=== PATIENT | female | born 1985 | race Caucasian/White ===

== ENCOUNTER 2018-11-25 07:56 | Inpatient (IN) | payer OTHER ==
[2018-11-19 14:35] VITALS: BMI 26.6
--- NOTE | 2018-11-23 15:09 | HP ---
Admitting History and Physical - Primary Care Physician PCP: Humberto Whittington - Admission Chief Complaint: BRCA positve History of Present Illness: 33 year old premenapausal female BRCA 2 positve mutation with H/O her maternal grandmother having breast cancer at age 40 and her mother passed from breast cancer at age 44 and tested negative 2002. Mammogram and US were negative and breast MRI was negative 07/30/2018 History Source: Patient Limitations to Obtaining History: No Limitations - Past Medical History ...LMP: 11/01/18 ...: No - Past Surgical History Past Surgical History: Yes: Tonsillectomy - Smoking History Smoking history: Never smoked Have you smoked in the past 12 months: No - Alcohol/Substance Use Hx Alcohol Use: Yes (SOCIALLY) Home Medications - Allergies Allergies/Adverse Reactions: Allergies Allergy/AdvReac Type Severity Reaction Status Date / Time latex Allergy Severe Hives,ITCHI Verified 11/19/18 14:28 NG No Known Drug Allergies Allergy Verified 11/19/18 14:28 - Home Medications Home Medications: Ambulatory Orders NK [No Known Home Medication] 11/19/18 Family Disease History - Family Disease History Family Disease History: CA: Grandparent (mat GM breast ca 40), Mother (breast ca 44 tested BRCA neg 2002 ) Physical Examination Constitutional: Yes: Well Nourished Breast(s): Yes: Other (B ptotic cup breasts no palapble densities or adenopathy bilaterally) Problem List - Problems (1) BRCA gene mutation test positive Code(s): Z15.01 - GENETIC SUSCEPTIBILITY TO MALIGNANT NEOPLASM OF BREAST; Z15.09 - GENETIC SUSCEPTIBILITY TO OTHER MALIGNANT NEOPLASM Assessment/Plan Bilateral total mastectomies with reconstruction
[2018-11-25] MEDS ORDERED: BUPIVACAINE HCL/PF 2.5 MG/ML - 30 ML VIAL IJ ONE (08:27)
[2018-11-25] MEDS ORDERED: ceFAZolin SODIUM 1 GM VIAL ONE (08:27)
[2018-11-25] MEDS ORDERED: GENTAMICIN SO4 80 MG/2 ML VIAL ONE (08:27)
[2018-11-25] MEDS ORDERED: SODIUM CHLORIDE 0.9% P/F 10 ML VIAL IJ ONE (08:27)
[2018-11-25] MEDS ORDERED: BUPIVACAINE LIPOSOME/PF (EXPAREL) 266 MG/20 ML VIAL ONE (08:29)
[2018-11-25] MEDS ORDERED: MIDAZOLAM HCL 2 MG/2 ML SINGLE DOSE VIAL ONE (08:52)
[2018-11-25] MEDS ORDERED: fentaNYL CITRATE 250 MCG/5 ML VIAL ONE (08:56)
[2018-11-25] MEDS ORDERED: PROPOFOL 20 ML ONE ×8 (08:58→08:59)
[2018-11-25] MEDS ORDERED: SUCCINYLCHOLINE CHLORIDE 200 MG/10 ML VIAL ONE (09:00)
[2018-11-25] MEDS ORDERED: ROCURONIUM BROMIDE 50 MG/5 ML VIAL ONE ×2 (09:00→10:29)
[2018-11-25] MEDS ORDERED: SCOPOLAMINE HYDROBROMIDE 1 PATCH PATCH.TD72 ONE (09:06)
[2018-11-25] MEDS ORDERED: ONDANSETRON 4 MG/2 ML VIAL IVPUSH PRN ×2 (09:08→13:04)
[2018-11-25] MEDS ORDERED: ZOLPIDEM TARTRATE 5 MG TABLET PO PRN (09:08)
[2018-11-25] MEDS ORDERED: NEOSTIGMINE METHYLSULFATE 0.5 MG/ML - 10 ML MDV ONE (12:27)
[2018-11-25] MEDS ORDERED: GLYCOPYRROLATE 0.2 MG/1 ML VIAL ONE (12:28)
[2018-11-25] MEDS ORDERED: PROMETHAZINE HCL 25 MG/1 ML VIAL IVPUSH PRN (13:04)
[2018-11-25] MEDS ORDERED: oxyCODONE HCL 5 MG TABLET PO PRN ×2 (13:04)
[2018-11-25] MEDS: oxyCODONE HCL 5 MG TABLET PO PRN ×2 (16:22→21:22)
[2018-11-25] MEDS: CEFAZOLIN 1 GM/D5W 1 GM/50 ML BAG IVPB SCH ×2 (16:25→20:29)
--- NOTE | 2018-11-25 17:19 | OP ---
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
[2018-11-25] MEDS: DEXTROSE 5%-0.45% SALINE 1,000 ML IV SCH (18:51)
[2018-11-25] MEDS ORDERED: ALPRAZolam 0.25 MG TABLET PO SCH (22:00)
[2018-11-25] MEDS ORDERED: diazePAM 5 MG TABLET PO SCH (22:00)
[2018-11-26] MEDS: CEFAZOLIN 1 GM/D5W 1 GM/50 ML BAG IVPB SCH ×4 (02:34→20:08)
[2018-11-26] MEDS: oxyCODONE HCL 5 MG TABLET PO PRN ×6 (03:45→23:57)
--- NOTE | 2018-11-26 06:23 | OP ---
DATE OF OPERATION: 11/25/2018 PREOPERATIVE DIAGNOSIS: Genetic susceptibility to breast cancer, BRCA2 positive. POSTOPERATIVE DIAGNOSIS: Genetic susceptibility to breast cancer, BRCA2 positive, status post bilateral mastectomy. PROCEDURE: Bilateral nipple-sparing mastectomy through an inframammary approach with bilateral prepectoral direct implant reconstruction with AlloDerm. ANESTHESIA: General endotracheal anesthesia. PRIMARY SURGEON: Cyrus Whittington MD CHAIN MAKER: ROBERT Rivero PRIMARY SURGEON FOR THE BILATERAL PREPECTORAL DIRECT IMPLANT RECONSTRUCTION: Cyrus Arreola MD COMPLICATIONS: There were no complications. INDICATIONS: Briefly the patient is a 33-year-old premenopausal female, [place] but no [place] ancestry. Her mother had breast cancer at age 44 but tested BRCA negative. The patient herself tested BRCA2 positive in March 2018 and has been getting close surveillance. Recent mammography, ultrasound and MRIs have all been negative. She was seen in consultation regarding risk-reduction prophylactic mastectomy. She understood her options of close surveillance versus tamoxifen versus prophylactic risk-reduction surgery. She decided to go forward with surgery and understood all risks and complications of the procedure including the risk of skin flap necrosis, nipple loss, hematoma, and infection. She understood our nipple-sparing technique and that we do retroareolar biopsies at the time of surgery. If these show cancer we would remove the nipples. She understood the lack of any evidence showing for doing prophylactic sentinel lymph node biopsy. She was seen by Dr. Arreola and decided on the prepectoral direct implant reconstruction technique. She was brought in on November 25, 2018, and in the holding area a site verification was made and informed consent was obtained. She was marked preoperatively by Dr. Arreola. She was brought into the operating room and laid on the OR table in a supine position. Venodynes were placed on the lower extremities prior to induction. She received 2 g of Ancef prior to incision. She underwent general endotracheal anesthesia. Both breasts were sterilely prepped and draped in the usual fashion. Timeout was performed. The left mastectomy was first performed through about a 9-cm inframammary incision. The skin edges were everted and the breast was retracted inferiorly using Chucky clamps. The skin flap was raised using the PEAK radiofrequency device superiorly to the level of the clavicle, medially to the level of the sternum, laterally to the level of the latissimus, and inferiorly below the level of the inframammary fold. The breast was taken out off the pectoralis major muscle using electrocautery from inferomedial to superolateral and completely removed intact. It was oriented with a long lateral, short superior suture and weighed to allow for appropriate cosmetic result. Hemostasis was achieved. The skin flaps were inspected and trimmed for a good cosmetic result. A retroareolar biopsy taken underneath the left nipple-areolar complex sent for frozen section came back negative so the left nipple was spared. At this point the right mastectomy was performed again through an inframammary incision about 9 cm in length. The skin edges were everted and the breast was retracted inferiorly using [place] clamps. The skin flap was raised using the PEAK radiofrequency device superiorly to the level of the clavicle, medially to the level of the sternum, laterally to the level of the latissimus, and inferiorly below the level of the inframammary fold. The breast was taken out off the pectoralis major muscle from inferomedial to superolateral and completely removed intact. It was oriented with a long lateral, short superior suture and weighed to allow for appropriate cosmetic result. The skin flaps were trimmed and inspected to remove all visual gross breast tissue and for a good cosmetic result. A right retroareolar biopsy was taken and sent for frozen section and came back negative so the right nipple was spared. Hemostasis was achieved and the wound was copiously irrigated with warm sterile saline. At this point Dr. Arreola became the primary surgeon and performed bilateral direct implant reconstructions in the prepectoral location using AlloDerm. Two Baljeet drains will be placed around each implant and brought out through separate stab incisions on the lateral skin flaps and secured in place using 3-0 nylon suture. They will be placed on J-P bulb suction. All wounds will be closed by Plastic Surgery with interrupted 3-0 deep dermal PDS suture and a running 4-0 subcuticular Biosyn suture. Mastisol and Steri-Strips will be applied over the skin and she will be placed in a surgical bra postoperatively. The patient did have an Exparel chest wall block placed on each chest wall prior to closure for postoperative pain control. The patient will be extubated and brought to the postanesthesia care unit. She will be recovered and admitted postoperatively for pain and wound management. All sponge and needle counts were correct at this point in the case and estimated blood loss was about 150 mL. She was hemodynamically stable at this point in the case. We did use the Spy skin perfusion device both before and after implant reconstruction which did show good perfusion of both skin flaps and nipple-areolar complexes. CYRUS WHITTINGTON M.D. [id number]
[2018-11-26] MEDS: ACETAMINOPHEN 325 MG TABLET (FP) PO PRN ×4 (06:31→23:57)
[2018-11-26 07:46] LABS: HEMATOCRIT 28.7 % (32.4-45.2); HEMOGLOBIN 9.4 GM/dl (10.7-15.3); MCH 29.4 pg (25.7-33.7); MEAN CELL VOLUME 89.3 fl (80-96); MEAN PLT VOLUME 9.3 fl (7.5-11.1); PLATELET COUNT 224 K/MM3 (134-434); RBC 3.21 M/mm3 (3.60-5.2); RDW 11.7 % (11.6-15.6); WHITE BLOOD COUNT 10.6 K/mm3 (4.0-10.8)
--- NOTE | 2018-11-26 08:23 | PN ---
Progress Note (short form) - Note Progress Note: ANESTHESIA POSTOP 33 YO FEMALE, POD#1, S/P BL MASTECTOMY, IMMEDIATE RECONSTRUCTION, GETA Patient resting in bed. No complaints. Pain adequately controlled. No n/v. Tolerating PO. VSS, Afebrile Encouraged IS and ambulation as tolerated.
--- NOTE | 2018-11-26 08:48 | PN ---
Progress Note, Physician Chief Complaint: BRCA positive S/P bilateral total mastectomies with implant and alloderm reconstruction POD #! History of Present Illness: patient is eating ,pain managed but C/O some tightness she has been on xanax for aprox a week to two bid to TID - Current Medication List Current Medications: Active Medications Acetaminophen (Tylenol -) 650 mg PO Q4H PRN PRN Reason: FEVER Last Admin: 11/26/18 06:31 Dose: 650 mg Alprazolam (Xanax -) 0.5 mg PO BID ENMANUEL Last Admin: 11/25/18 21:26 Dose: 0.5 mg Cefazolin Sodium (Ancef 1 Gm Premixed Ivpb -) 1 gm in 50 mls @ 100 mls/hr IVPB Q6H-IV ENMANUEL Stop: 12/02/18 14:59 Last Admin: 11/26/18 08:39 Dose: 100 mls/hr Dextrose/Sodium Chloride (D5-1/2ns -) 1,000 mls @ 100 mls/hr IV ASDIR ENMANUEL Last Admin: 11/25/18 18:51 Dose: Not Given Ondansetron HCl (Zofran Injection) 4 mg IVPUSH Q6H PRN PRN Reason: NAUSEA AND/OR VOMITING Oxycodone HCl (Roxicodone -) 5 mg PO Q4H PRN PRN Reason: PAIN LEVEL 1-5 Last Admin: 11/26/18 08:40 Dose: 5 mg Oxycodone HCl (Roxicodone -) 10 mg PO Q4H PRN PRN Reason: PAIN LEVEL 6-10 Last Admin: 11/26/18 03:45 Dose: 10 mg - Objective Vital Signs: Vital Signs Temperature 98.5 F 11/26/18 04:00 Pulse Rate 79 11/26/18 04:00 Respiratory Rate 18 11/26/18 04:00 Blood Pressure 103/53 L 11/26/18 04:00 O2 Sat by Pulse Oximetry (%) 97 11/26/18 04:00 Constitutional: Yes: No Distress Breast(s): Yes: Other (Bilateral flaps viable minimal echymosis incision intact with steristrips RODOLFO drains functioning well) Labs: CBC, BMP 11/26/18 07:14 Problem List - Problems (1) BRCA gene mutation test positive Code(s): Z15.01 - GENETIC SUSCEPTIBILITY TO MALIGNANT NEOPLASM OF BREAST; Z15.09 - GENETIC SUSCEPTIBILITY TO OTHER MALIGNANT NEOPLASM Assessment/Plan Continue IV antibiotics SCD in bed spirometry oxycodone prn xanax alternating with valium for anxiety /tightness plan for discharge tmr
[2018-11-26] MEDS: ALPRAZolam 0.25 MG TABLET PO PRN ×2 (09:00→22:04)
[2018-11-26] MEDS: diazePAM 5 MG TABLET PO PRN ×2 (10:10→22:04)
--- NOTE | 2018-11-26 17:36 | PN ---
Progress Note (short form) - Note Progress Note: POD#1 Pt seen earlier this am. Pt states that her pain is around a level 5, it is more dull in nature. Voiding without difficulty. Vital Signs Period Temp Pulse Resp BP Sys/Porras Pulse Ox Last 24 Hr 98.4 F-98.5 F 75-79 16-18 94-103/43-53 97-99 RODOLFO: RIGHT:140 ml-bloody but thin appearing LEFT: 130ml bloody GEN: A&0x3, NAD Breast: b/l nipple with good capillary refill and tissue perfusion. No evidence of ischemia. Warm to touch b/l. RODOLFO's stripped and functioning well. Mild ecchymosis b/l. steri strips c/d/i. 4x4 gauze/abd pads and surgical bra reapplied. CBC, BMP 11/26/ 07:14 A/p: 33 yo female s/p b/l prophylactic mastectomy with reconstruction/alloderm and implants Pt without any evidence of tissue ischemia. Nipples warm and skin well perfused. Care as per the primary surgical team F/u with Dr. Arreola as an outpatient in the office D/w Dr. Arreola
[2018-11-27] MEDS: CEFAZOLIN 1 GM/D5W 1 GM/50 ML BAG IVPB SCH ×2 (02:59→09:43)
[2018-11-27] MEDS: oxyCODONE HCL 5 MG TABLET PO PRN ×2 (03:06→07:50)
[2018-11-27] MEDS: ACETAMINOPHEN 325 MG TABLET (FP) PO PRN ×2 (03:07→10:43)
[2018-11-27 03:16] VITALS: TEMP 98.4
[2018-11-27 07:31] VITALS: BP 100/55; PULSE 80
[2018-11-27] MEDS: DEXTROSE 5%-0.45% SALINE 1,000 ML IV SCH (08:18)
[2018-11-27] MEDS: diazePAM 5 MG TABLET PO PRN (10:44)
--- NOTE | 2018-11-29 09:56 | OP ---
DATE OF OPERATION: 11/25/2018 SURGEON: Cyurs Arreola MD ALUMNAE SECRETARY SURGEON: Maggie White PA-C This is a combined dictation with Dr. Cyrus Whittington. PREOPERATIVE DIAGNOSES: 1. Bilateral acquired chest wall deformity status post bilateral mastectomy. 2. Personal history of genetic carcinoma. 3. Absent bilateral breasts. POSTOPERATIVE DIAGNOSES: 1. Bilateral acquired chest wall deformity status post bilateral mastectomy. 2. Personal history of genetic carcinoma. 3. Absent bilateral breasts. OPERATIVE PROCEDURE: 1. Right breast immediate reconstruction utilizing immediate insertion of silicone breast implant, AlloDerm reconstruction and mesh placement. 2. Left breast immediate reconstruction utilizing immediate insertion of silicone breast implant, AlloDerm reconstruction and mesh placement. 3. Intravenous injection of indocyanine green dye and intraoperative diagnostic evaluation of noncoronary intraoperative fluorescein vascular angiography x2 as well as interpretation of angiogram intraoperatively. OPERATIVE INDICATION: Patient is a 32-year-old white female who was brought to the operating room by Dr. Cyrus Whittington for bilateral mastectomy for significant genetic history of breast carcinoma. The patient elected to undergo bilateral mastectomy with the above reconstructive procedure in a prepectoral position. The risks and benefits of surgical versus nonsurgical alternatives as well as material complications were described to the patient on multiple occasions preoperatively. She was marked in the standing position preoperatively in the holding area and all questions were asked and answered. OPERATIVE PROCEDURE IN DETAIL: The patient was taken to the operating room by Dr. Whittington where she was placed supine on the operating room table. Both arms were extended and padded. Venodyne boots were placed and all areas were protected and padded. Dr. Whittington will dictate his portion of the operation under separate cover. At this point Dr. Whittington performed bilateral mastectomy with an inframammary incision on both right and left breasts which will be dictated separately. Upon completion of the mastectomies the wounds were copiously irrigated and hemostasis was meticulously obtained throughout the pocket and both chest levy. On the back table as the mastectomies were being performed I created reconstructive procedures by utilizing a full coverage reconstructive implant. A Sientra smooth round high-profile style 107, 505 mL implant was used for the reconstruction. Covidien ProGrip mesh was placed in a circular fashion cutting out the mesh slightly larger than the back side of the implant. The gripping portion of the mesh was placed away from the implant in order to adhere to the pectoralis muscle. At this point a sheet of AlloDerm was selected. In this case a 16 x 20 perforated thick AlloDerm was used to cover the anterior surface of the entire implant and then was sutured down to the underlying mesh over the implant and suturing it on the back side. Multiple 2-0 Vicryl sutures were placed around the circumference of the implant creating an entire enclosure for the new implant device. Triple-antibiotic solution and Betadine were used to cover this device and the AlloDerm was soaked in triple-antibiotic solution x3. Both devices were created on the back table and ready for reconstruction. The exact same procedure was carried out symmetrically on the opposite left side in order to create the same device with the same size Sientra 107, 505 mL high-profile implant. Once the mastectomies were completed, the left breast was attended to first. The device was transferred to the left chest wall and the rim which extended beyond the implant itself was then attached to the chest wall using 0 V-Loc suture in a running fashion from the medial to the lateral side to tack the mesh down to the pectoralis muscle at the inframammary fold and laterally and medially in order to prevent motion of the device. Good shape and contour were seen in the shape of the breast at this point. Skin flaps showed viability. The Spy intraoperative angiogram was performed at this point by injecting 4 mL of indocyanine green dye into the intravascular system and then an intraoperative angiogram was used to show adequate blood flow to the skin and nipple-areolar complex on both chest levy. This was repeated before placement of the implant and then after the implant was placed. Both showed good blood flow. The Spy imaging system was brought into the field. The skin flowed to the right and left breasts and the nipple-areolar complex, and the entire skin flaps were evaluated and seen to be viable with good blood flow. The patient had the 2nd implant placed into the right chest wall in the exact same fashion, suturing a 0 V-Loc suture in running fashion from medial to lateral, attaching the posterior aspect of the mesh down to the chest wall. Once the implants were verified in good position and shape and contour were seen the skin flaps were draped over the implant and down into their new anatomic position. The skin edges were trimmed. A 15 Baljeet drain was threaded through a separate stab wound around the entire circumference of the implant itself and sutured into position. Again, copious irrigation and hemostasis were obtained and then attention was turned to the closure. Using 3-0 PDS suture on the deep dermis and tissue the deep layer was repaired with interrupted sutures and then a 4-0 Biosyn suture was used in a subcuticular fashion to repair the skin. Biopatch and Dermabond with Steri-Strips were placed over the drain and suture line. A compression dressing with fluff dressings, ABD gauze and a Surgi-Bra were placed. She was then awakened, extubated and transferred to the recovery room in satisfactory condition and showed excellent contour and excellent result at this point. CYRUS ARREOLA M.D. [id number]
--- NOTE | 2018-11-29 15:14 | PATH ---
Surgical Pathology Report Patient Name: MARY AYALA Med. Rec. #: [id number] /Age/Gender: 1985 (Age: 33) / F Account: [id number] Location: [facility] Taken: 11/25/2018 Received: 11/25/2018 Reported: 11/29/2018 Physicians: Humberto Whittington M.D. Specimen(s) Received A: LEFT BREAST RETROAREOLAR BIOPSY#1 (FS) B: RIGHT BREAST RETRO AREOLAR BIOPSY #2 (FS) C: LEFT BREAST MASTECTOMY D: RIGHT BREAST MASTECTOMY Clinical History BRCA+ prophylactic Intraoperative Consult Diagnosis A. Left breast retroareolar biopsy, frozen section: Negative for malignancy. B. Right breast retroareolar biopsy, frozen section: Negative for malignancy. Ana Greene M.D., 11/25/2018 Final Diagnosis A. BREAST, LEFT, RETROAREOLA, BIOPSY (FS): BENIGN BREAST TISSUE; NEGATIVE FOR MALIGNANCY. B. BREAST, RIGHT, RETROAREOLA, BIOPSY (FS): BENIGN BREAST TISSUE; NEGATIVE FOR MALIGNANCY. C. BREAST, LEFT, NIPPLE-SPARING MASTECTOMY: BENIGN BREAST TISSUE SHOWING FIBROCYSTIC CHANGES. D. BREAST, RIGHT, NIPPLE-SPARING MASTECTOMY: BENIGN BREAST TISSUE SHOWING FIBROCYSTIC CHANGES. Electronically Signed Alma Greene M.D. Gross Description A. Received fresh labeled "left breast retroareolar biopsy," is a 0.7 x 0.5 x 0.2 cm portion of pink and red barlow tissue. A frozen section is performed on the tissue. The frozen section residue is entirely submitted in one cassette. B. Received fresh labeled "right breast retroareolar biopsy," is a 1.4 x 0.8 x 0.3 cm portion of pink and red barlow tissue. A frozen section is performed on the tissue. The frozen section residue is entirely submitted in one cassette. C. Received in formalin, labeled "left breast," is a 379 gram, 13.5 x 15.0 x 3.5 cm. left mastectomy specimen with a short suture marking the superior aspect and a long suture marking the lateral aspect of the specimen, per the surgeon. There is no skin or nipple present. The deep margin is inked black and the anterior soft tissue margin is inked blue. The specimen is serially sectioned from medial to lateral. Sectioning reveals abundant dense white fibrous tissue. Shading Painter sections are submitted in 14 cassettes as follows: 1-3-upper outer quadrant; 4-6-lower outer quadrant; 7-9-upper inner quadrant; 10-12-lower inner quadrant; 13-anterior soft tissue margin; 14-deep margin. D. Received in formalin, labeled "right breast," is a 302 gram, 15.0 x 15.0 x 3.0 cm. right mastectomy specimen with a short suture marking the superior aspect and a long suture marking the lateral aspect of the specimen, per the surgeon. There is no skin or nipple present. The deep margin is inked black and the anterior soft tissue margin is inked blue. The specimen is serially sectioned from lateral to medial. Sectioning reveals abundant dense white fibrous tissue. Shading Painter sections are submitted in 13 cassettes as follows: 1-5- lower inner quadrant (with anterior margin); 6-8-upper inner quadrant; 9-10-upper outer quadrant; 11-12-lower outer quadrant; 13-deep margin. Total formalin fixation time: Approximately 30 hours. 11/26/2018 [facility]11/26/2018
== END 2018-11-27 11:02 | disposition home or self-care (01) | DRG 941 ==
LOC: FM/S 07:56
PROVIDERS: ADMIT Surgery Surgical Oncology; ATTEND Surgery Surgical Oncology
PROC: 0HTV0ZZ Resection of Bilateral Breast, Open Approach (ICD-10-PCS; principal; 2018-11-25 09:40)
PROC: 0HRVXKZ (ICD-10-PCS; 2018-11-25 09:40)
DX: Z15.01 Genetic susceptibility to malignant neoplasm of breast (principal); Z80.3 Family history of malignant neoplasm of breast
CPT/HCPCS: 36415; 84703; 85027; 88307-TC; 88331-TC; 94760

== ENCOUNTER 2020-01-26 09:30 | Day surgery (SDC) | payer OTHER ==
[2020-01-23 14:29] VITALS: BMI 33.0
[2020-01-26] MEDS ORDERED: GENTAMICIN SO4 80 MG/2 ML VIAL ONE (10:07)
[2020-01-26] MEDS ORDERED: ceFAZolin SODIUM 1 GM VIAL ONE ×2 (10:07→10:43)
[2020-01-26] MEDS ORDERED: BUPIVACAINE HCL/PF 0.5% (5MG/ML) 10 ML VIAL ONE (10:09)
[2020-01-26] MEDS ORDERED: LIDOCAINE 1%/EPI 1:100000 (20 ML MULTI DOSE VIAL) ONE (10:09)
[2020-01-26] MEDS ORDERED: EPINEPHrine/PF 1 MG/1 ML (1:1,000) AMPULE ONE (10:14)
[2020-01-26] MEDS ORDERED: LIDOCAINE HCL 1%, 10 MG/ML (20ML VIAL) ONE (10:14)
[2020-01-26] MEDS ORDERED: SUCCINYLCHOLINE CHLORIDE 200 MG/10 ML SYRINGE ONE (10:19)
[2020-01-26] MEDS ORDERED: MIDAZOLAM HCL 2 MG/2 ML SINGLE DOSE VIAL ONE (10:19)
[2020-01-26] MEDS ORDERED: PROPOFOL 20 ML ONE ×2 (10:19)
[2020-01-26] MEDS ORDERED: LIDOCAINE HCL/PF 2% SDV 5ML VIAL ONE ×2 (10:19→10:43)
[2020-01-26] MEDS ORDERED: ONDANSETRON 4 MG/2 ML VIAL ONE (10:43)
[2020-01-26] MEDS ORDERED: LIDOCAINE HCL 2% JELLY (5 ML/TUBE) ONE (10:43)
[2020-01-26] MEDS ORDERED: KETOROLAC TROMETHAMINE 30 MG/1 ML VIAL ONE (10:43)
[2020-01-26] MEDS ORDERED: DEXAMETHASONE SOD PHOSPHATE 4 MG/1 ML VIAL ONE (10:43)
[2020-01-26] MEDS ORDERED: LIDOCAINE 1%/EPI 1:100000 (50 ML MULTI DOSE VIAL) NR ONE ×2 (10:55)
[2020-01-26] MEDS ORDERED: ONDANSETRON 4 MG/2 ML VIAL IVPUSH PRN (12:15)
[2020-01-26] MEDS ORDERED: oxyCODONE HCL 5 MG TABLET PO PRN ×2 (12:15)
[2020-01-26] MEDS ORDERED: PROMETHAZINE HCL 25 MG/1 ML VIAL IVPUSH PRN (12:15)
--- NOTE | 2020-01-26 12:18 | OP ---
Operative Note - Note: Operative Date: 01/26/20 Pre-Operative Diagnosis: acquired chest wall deformity post mastectomies Operation: Subcutaneous tissue transfer to both breasts. Bilateral implant exchange Implants: Sientra 107 620cc bilateral Post-Operative Diagnosis: Same as Pre-op Surgeon: Claudy Arreola Business Technology Analyst: Luciano Mitchell Anesthesia: General Specimens Removed: none Estimated Blood Loss (mls): 25
[2020-01-26 12:42] VITALS: TEMP 97.7
[2020-01-26 13:49] VITALS: BP 117/72
[2020-01-26 14:26] VITALS: PULSE 78
--- NOTE | 2020-01-30 14:19 | PATH ---
Surgical Pathology Report Patient Name: MARY AYALA Med. Rec. #: [id number] /Age/Gender: 1985 (Age: 34) / F Account: [id number] Location: [facility] AM[facility] Taken: 01/26/2020 Received: 01/26/2020 Reported: 01/30/2020 Physicians: Claudy Arreola Specimen(s) Received A: RIGHT BREAST IMPLANT B: LEFT BREAST IMPLANT Clinical History Breast cancer Final Diagnosis A. RIGHT BREAST IMPLANT, REMOVAL: CONSISTENT WITH BREAST IMPLANT. GROSS EXAMINATION ONLY. B. LEFT BREAST IMPLANT, REMOVAL: CONSISTENT WITH BREAST IMPLANT. GROSS EXAMINATION ONLY. Electronically Signed Preston Diego M.D. Gross Description A. Received fresh labeled "right breast implant," is a 13 cm in diameter x 4 cm in depth clear, rubbery, intact breast implant. No soft tissue is present. No sections are submitted, gross only. B. Received fresh labeled "left breast implant," is a 13 cm in diameter x 4 cm in depth clear, rubbery, intact breast implant. No soft tissue is present. No sections are submitted, gross only. /01/27/2020 [place]01/27/2020
--- NOTE | 2020-01-31 16:52 | OP ---
DATE OF OPERATION: 01/26/2020 SURGEON: Humberto Arreola MD. CO-SURGEON: Luciano Mitchell MD . PREOPERATIVE DIAGNOSIS: 1. Bilateral acquired chest wall deformity status post bilateral mastectomy. 2. Genetic history of breast carcinoma. 3. Acquired chest wall deformity. 4. Mechanical complication of breast implant. OPERATIVE PROCEDURE: 1. Right breast reconstruction utilizing other technique. 2. Left breast reconstruction utilizing other technique. 3. Right breast capsulectomy, removal and replacement of right breast implant. 4. Capsulectomy, removal and replacement of left breast implant. POSTOPERATIVE DIAGNOSIS: 1. Bilateral acquired chest wall deformity status post bilateral mastectomy. 2. Genetic history of breast carcinoma. 3. Acquired chest wall deformity. 4. Mechanical complication of breast implant. OPERATIVE INDICATION: Patient is a young woman who underwent bilateral mastectomy and subsequent reconstruction with implants. Patient now presents with irregularities and contour deformity of the chest wall requiring the above procedures. The risks and benefits of surgical versus nonsurgical alternatives as well as material complications were described to the patient on multiple occasions, preoperatively, and she agreed to the planned procedure. OPERATIVE PROCEDURE IN DETAIL: Patient was taken to the operating room, and after induction of general anesthesia in the supine position, both arms were extended and padded, Venodyne boots were placed. At this point, the markings which had been made in the standing position preoperatively for outline of procedure were reconfirmed and timeout and preparation was begun for the surgery. At this point, Dr. Mitchell and myself performed independent surgery as co-surgeons, not helping each other, in order to facilitate the reconstructive procedure. At this point, I began the procedure on the right breast and the mastectomy scar. Both mastectomy scars on the right and left breast were injected with 1% local lidocaine with 1:100,000 epinephrine and then along the mastectomy scar itself. At this point on the right breast, an incision was made after topical anesthesia and hemostasis was controlled, down through the skin and to subcutaneous tissue and through subcutaneous tissue down to underlying capsule. The capsule was then incised along the course of the incision and opened in order to expose the underlying malposition implant. The implant was then removed and sent for pathologic diagnosis on the right breast. Copious irrigation was performed, and modification of the pocket to accept the new implant was carried out. At this point, an implant was chosen, a Sientra smooth round high profile 620-mL volume implant was placed into the pocket to correct the deformity. Once this was positioned, a sterile technique was used through the Santizo funnel for positioning, and then the deepest layer of the capsule were closed after modification. This is closed with a 3-0 PDS suture in running fashion for watertight closure. The patient was then turned back to the abdominal wall. The previous scars on the abdominal wall were excised in the usual fashion after injection, and then dissection was carried down through the deep layers to the subcutaneous tissue to the underlying musculature. Tissue was then harvested from the anterior abdominal wall over the rectus muscle, laterally over the oblique fascia and extending into the flanks. The tissue was then transferred to the back table, washed and cleansed and prepared for reconstructive purposes. The exact same procedure was carried out symmetrically on the opposite left breast, also removing the implant or replacing it with a 620-mL volume smooth round high profile Sientra implant. Once the tissue was ready for reconstruction, it was transferred to the right and left breast symmetrically, placing it in the medial, central, and superior as well as lateral and inferior portions of the right breast, and then independently by put in the position of the left breast similarly. Once the tissue was in place, good shape and contour was seen in the sitting position. The donor site on the abdominal wall was closed with interrupted running sutures, and the mastectomy scars were also closed. The left breast also was corrected in a similar fashion to the right and will be dictated in the same way. The patient tolerated procedure well. She was dressed in a Surgi-Bra with a fluff dressing and went to the recovery room in satisfactory condition. HUMBERTO ARREOLA M.D. [id number]
--- NOTE | 2020-02-01 15:25 | OP ---
DATE OF OPERATION: 01/26/2020 PREOPERATIVE DIAGNOSES: 1. Genetic predisposition for the development of breast cancer. 2. Acquired absence of bilateral breasts. 3. Deformity of bilateral reconstructed breasts. POSTOPERATIVE DIAGNOSES: 1. Genetic predisposition for the development of breast cancer. 2. Acquired absence of bilateral breasts. 3. Deformity of bilateral reconstructed breasts. PROCEDURE: 1. Bilateral open periprosthetic capsulectomies with implant removal. 2. Bilateral breast implant insertion (Sientra high-profile 650 mL smooth round silicone). 3. Subcutaneous tissue transfer from abdomen and bilateral flank to bilateral breast deformities. ATTENDING SURGEON: Luciano Kaur MD CO-SURGEON: Ubaldo Arreola MD ANESTHESIA: General endotracheal. ESTIMATED BLOOD LOSS: 10 mL SPECIMEN: 1. Right capsule to Pathology. 2. Left capsule to Pathology. DRAINS: None. COMPLICATIONS: None. CONDITION: Stable to recovery room, extubated. INDICATIONS: The patient is a 34-year-old female with a history of bilateral nipple-sparing mastectomies for breast cancer risk reduction. She has healed well and now presents for secondary reconstruction in order to perform capsulectomies and implant exchanges as well as correct any contour deformities with subcutaneous tissue transfer. The risks, benefits and alternatives of the reconstructive procedures were discussed with the patient preoperatively in detail and all questions were answered. The risks include but are not limited to bleeding, infection, pain, need for revision or further surgery, residual breast deformity, residual breast asymmetry, damage to neighboring structures including nerves, arteries, veins and tendons. The patient understands these risks and has elected to proceed with surgery. PROCEDURE: After proper identification and marking the patient in the preoperative holding area, the patient was transported to the operating room and placed supine on the table while noninvasive anesthesia monitors were applied. Intravenous access was established. General anesthesia was administered and the patient was intubated without difficulty. SCD boots were applied to bilateral lower extremities. Intravenous antibiotics were then given. At this point the patient's bilateral breasts as well as the abdomen and flanks were prepped and draped in the usual sterile fashion. After a timeout was performed, Dr. Arreola and Braulio began the reconstruction working independently as co-surgeons with separate instrument setups. Attention was first turned toward the abdomen where local anesthesia consisting of lidocaine with epinephrine was infiltrated along the planned access incisions. No.15 blade was used to make these access incisions and standard tumescent solution was then infiltrated into the subcutaneous tissue of the abdomen and bilateral flanks. A total of 2 L of tumescent solution was infiltrated. Once an adequate amount of time was given for the tumescent solution to take effect, the MicroAire system as loaded with a 5-mm cannula and was hooked up sterilely to the Celcuity collection basin. At this point subcutaneous tissue harvest was performed. Once an adequate amount of subcutaneous tissue had been harvested, the access incisions were closed with 5-0 plain gut in simple interrupted fashion. On the sterile [place] stand the subcutaneous tissue was then processed using multiple warm lactated Ringer washes. The isolated adipocytes were then loaded into 10 mL syringes in preparation for subcutaneous tissue transfer. At this point attention was turned towards the right breast where the previous inframammary fold scar was infiltrated with a similar local anesthetic solution. A No. 15 blade was used to make this incision and then the dissection was carried down through the full thickness of the subcutaneous tissue with electrocautery. The underlying breast capsule was then encountered and this was incised, and the breast implant was removed intact and passed off the field for gross examination only. At this point an open periprosthetic capsulotomy and capsulectomy were performed in order to modify the right breast pocket. Excised right breast capsule was passed off the field to Pathology. Once the pocket was adequately modified, the pocket was irrigated with triple-antibiotic solution and hemostasis was ensured. Next, the pocket was irrigated with a dilute Betadine solution as well. Gloves at this point were changed and a Santizo funnel was used to insert a Sientra smooth round high-profile silicone breast implant measuring 650 mL in volume. Once proper positioning and orientation of the implant was confirmed, the capsule was reapproximated and closed in a primary fashion using a 3-0 PDS in a simple running fashion. Once a watertight closure of the capsule was completed, the inframammary fold incision was closed in layers using a 3-0 PDS in a buried deep dermal fashion followed by a 3-0 V-Loc suture in a running subcuticular fashion. Next, No. 15 blade was used to make a separate stab incision medial to the inframammary fold and closure line. The isolated adipocytes were then transferred to the right breast, especially the medial and superior poles. A modified Gillis technique was used and the Gillis bucket-handled cannula was used as well. Care was taken to ensure a uniform distribution of the adipocytes. There was noted to be an excellent correction of any step-offs and contour deformities with the transfer of the subcutaneous tissue. Once the capsulectomy, implant exchange, and subcutaneous tissue transfer had been completed on the right side, attention was turned toward the left side where the exact same procedures were performed and, therefore, only 1 side will be dictated. Once bilateral breast incisions were all closed, they were cleansed with normal saline and Dermabond was applied. The patient was this point was placed into a soft surgical bra with care taken to ensure adequate padding with fluffs and ABD pads. The patient was also placed into a compressive abdominal binder and was fully awakened and extubated without incident and was transported to recovery room in stable condition. LUCIANO KAUR M.D. [id number]
== END 2020-01-26 14:20 | disposition home or self-care (01) ==
LOC: FASU 09:30
PROVIDERS: ATTEND Plastic Surgery
PROC: 0HRV07Z Replacement of Bilateral Breast with Autologous Tissue Substitute, Open Approach (ICD-10-PCS; 2020-01-26)
PROC: 0HPU0JZ Removal of Synthetic Substitute from Left Breast, Open Approach (ICD-10-PCS; principal; 2020-01-26 10:55)
PROC: 0HPT0JZ Removal of Synthetic Substitute from Right Breast, Open Approach (ICD-10-PCS; 2020-01-26 10:55)
PROC: 0HRV0JZ Replacement of Bilateral Breast with Synthetic Substitute, Open Approach (ICD-10-PCS; 2020-01-26 10:55)
DX: M95.4 Acquired deformity of chest and rib (principal); Z90.13 Acquired absence of bilateral breasts and nipples; Z15.01 Genetic susceptibility to malignant neoplasm of breast; T85.41XA Breakdown (mechanical) of breast prosthesis and implant, initial encounter; Y83.8 Other surgical procedures as the cause of abnormal reaction of the patient, or of later complication, without mention of misadventure at the time of the procedure; Y92.89 Other specified places as the place of occurrence of the external cause
CPT/HCPCS: 84703; 88300-TC; 94760